=== PATIENT | male | born 1955 | race Caucasian/White ===

== ENCOUNTER 2016-10-18 13:55 | Inpatient (IN) ==
[2016-10-18] MEDS ORDERED: ONDANSETRON 4 MG/2 ML VIAL IV PRN (13:59)
[2016-10-18] MEDS ORDERED: GLUCAGON 1 MG VIAL IM PRN (13:59)
[2016-10-18] MEDS ORDERED: ACETAMINOPHEN 325 MG TABLET PO PRN (13:59)
[2016-10-18] MEDS ORDERED: DEXTROSE 50% 25 GM/50 ML VIAL IV PRN (13:59)
[2016-10-18] MEDS ORDERED: SODIUM CHLORIDE 0.45% 1,000 ML IV SCH (14:00)
[2016-10-18] MEDS ORDERED: HYDROcodone/CHLORPHENIRAMINE ER 5 ML UDCUP PO PRN (14:15)
[2016-10-18] MEDS ORDERED: PSEUDOEPHEDRINE 30 MG TABLET PO PRN (14:20)
--- NOTE | 2016-10-18 14:27 | Family Practice History&Phys ---
Assessment and Plan (1) maxillary sinusitis Status: Acute Assessment and plan: Patient has failed to respond to outpatient therapy. We'll start on antibiotics steroids and other treatment (2) bronchitis with bronchospasm Status: Acute Assessment and plan: Patient has failed to respond to outpatient treatment. We will start on respiratory treatments, steroids, antibiotics and other appropriate therapy (3) coronary artery disease with stents Status: Chronic Assessment and plan: Stable on present treatment plan (4) previous myocardial infarction Status: Chronic Assessment and plan: Stable at present (5) history sarcoidosis Status: Acute Assessment and plan: Stable at present (6) type 2 diabetes mellitus Status: Chronic Assessment and plan: Stable on present medications. We will start on sliding scale and monitor (7) hypertension Status: Chronic Assessment and plan: Stable on present medications (8) hyperlipidemia Status: Chronic Assessment and plan: Stable on present medications and diet History of Present Illness Chief complaint: sinusitis, bronchitis History of present illness: Mr. Chow is a 61 year old male Patient is a 61 year-old white male with has been followed in the clinic with a 7-10 day history of productive cough with greenish sputum, nasal discharge, headache,facial pain ,severe weakness,chills,and shortness of breath. He was seen on 10/15/2016 and noted to have significant bronchospasm and lung bases bilaterally. X-rays of the chest revealed a right perihilar infiltrate. Once the sinuses revealed a 60% air-fluid level on the left side guarding on the right. Patient was started on oral antibiotics decongestants steroids and respiratory treatments. Patient seen today stating that he is actually worse. Unable to lay down or sleep because of shortness of breath. Has significant pressure over his maxallary region and upper teeth bilaterally. Patient states she is extremely weak. He has decreased breath sounds with wheezing all lung vizcaino which appears to be worse from previous visit. In view of the of weakness with poor response to treatment we'll admit for further evaluation therapy. Home Medications Medication Instructions Recorded Confirmed Type Allopurinol [Allopurinol] 300 mg PO DAILY 09/21/15 09/21/15 History Aspirin Chew Tab 81 mg PO DAILY 09/21/15 09/21/15 History Bimatoprost 0.01% Oph Soln 1 drop BOTH EYES BEDTIME 09/21/15 09/21/15 History [Lumigan] Carvedilol [Carvedilol] 3.125 mg PO BID 09/21/15 09/21/15 History Diphenoxylate/Atrop 2.5-0.025 1 tablet PO Q6H PRN #12 tablet 09/21/15 Rx [Lomotil Tab] Glyburide/Metformin HCl 1 tablet PO BID 09/21/15 09/21/15 History [Glyburide-Metformin 5-500 mg] Losartan [Cozaar] 25 mg PO DAILY 09/21/15 09/21/15 History Omeprazole Magnesium [Prilosec Otc] 20 mg PO DAILY 09/21/15 09/21/15 History Ondansetron Tab [Zofran Tab] 4 mg PO Q4H PRN #20 tablet 09/21/15 Rx Pitavastatin Calcium [Livalo] 2 mg PO DAILY 09/21/15 09/21/15 History Allergies Allergy/AdvReac Type Severity Reaction Status Date / Time No Known Allergies Allergy Unverified 09/21/15 16:32 Medical,Surgical,& Family Hx - Medical History Cardio: History of: CAD (Previous stent placement), Hypertension, [place] Endocrine: History of: Diabetes Mellitus (NIDDM), Dyslipidemia Renal: History of: Renal Problems (history of renal calculi) Gastrointestinal: History of: GERD - Surgical History Cardiac Surgeries: Sugical HX of: Cardiac Catheterization (history of coronary artery stents) HEENT Surgeries: Surgical HX of: Tonsilectomy & Adenoidectomy Orthopedic Surgeries: Surgical HX of;: Orthopedic Surgery (arthroscopic knee surgery on right), Total Knee Replacement - Family History Family History: Reports;: Family Cancer, Family Diabetes, Family Hypertension - Social History Smoking Status: Never smoker Frequency of Alcohol Use: None Type of Drug Use: None Marital Status: Lives With:: Spouse Functional capacity: independent ambulation Exam - Constitutional General appearance: mild distress - Head Head exam: Present: normal inspection - ENT ENT exam: Present: other (nasal mucosa is inflamed with some exudate on the left side) - Neck Neck exam: Present: normal inspection - Respiratory Respiratory exam: Present: wheezes (wheezing in bases bilaterally) - Cardiovascular Cardiovascular exam: Present: regular rate and rhythm - GI/Abdominal GI/Abdominal exam: Present: normal bowel sounds, soft - Extremities Exam Extremities exam: Present: normal inspection - Back Exam Back exam: Present: normal inspection - Neurological Exam Neurological exam: Present: alert - Psychiatric Psychiatric exam: Present: normal affect - Skin Skin exam: Present: normal color
[2016-10-18 14:57] LABS: Basophils % 0.2 % (0.0-0.8); Hematocrit 46.9 VOL% (42.0-52.0); Immature Granulocytes % 0.7 %; Immature Granulocytes Absolute 0.09 #; Lymphocytes # 1.6 10*3/uL (1.4-4.0); Mean Corpuscular Hemoglobin 29 PG (27-34); Mean Corpuscular Volume 91.4 FL (87-102); Mean Platelet Volume 9.4 FL (9.6-12.0); Monocytes # 0.3 10*3/uL (0.11-0.8); Monocytes % 2.3 % (1.7-12.7); Neutrophils # 10.5 10*3/uL (1.4-7.4); Neutrophils % 83.8 % (38.7-73.9); Platelet Count 310 10*3/uL (130-400); Red Blood Count 5.13 10*6/uL (3.8-5.5); Red Cell Distribution Width 13.6 % (9.3-17.3); White Blood Count 12.5 10*3/uL (4.5-13.71)
[2016-10-18] MEDS: ALBUTEROL/IPRATROPIUM 3 ML NEB RESP TX SCH ×2 (15:11→20:10)
--- NOTE | 2016-10-18 15:13 | XRay Report ---
Exam: XR chest 2V Date: 10/18/2016 2:04 PM Indication: Shortness of breath Comparison: 10/19/2012 Technical:PA lateral Findings: Degenerative change present along the right shoulder and thoracic spine. The heart is at upper limits of normal. No obvious consolidating infiltrate or effusion. The mediastinum structures reveal no acute findings. Impression: 1. No acute cardiopulmonary pathology 2. 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 Grant Vides
[2016-10-18 15:17] LABS: Alanine Aminotransferase 44 U/L (16-61); Albumin 3.7 G/DL (3.4-5.0); Alkaline Phosphatase 90 U/L (45-117); Aspartate Amino Transferase 19 U/L (0-37); Bilirubin,Total < 0.39 MG/DL (0.2-1.0); Blood Urea Nitrogen 28 MG/DL (7-18); Calcium 9.2 MG/DL (8.5-10.1); Glucose 296 MG/DL (74-106); Magnesium 2.3 MG/DL (1.8-2.4); Osmolality,Calculated 295.4 MOS/KG (273-304); Potassium 4.3 MMOL/L (3.5-5.1); Sodium 140 MMOL/L (136-145); Total Protein 7.8 G/DL (6.4-8.3)
--- NOTE | 2016-10-18 15:20 | XRay Report ---
Exam: XR sinus Date: 10/18/2016 2:11 PM Indication: Sinusitis Comparison: None Technical: AP lateral Jason exam Findings: The frontal sinuses ethmoid air cells and the mastoid air cells and sphenoid sinus are intact. Air-fluid level suggesting acute left maxillary sinusitis. Minimal inflammation in the right maxillary antrum. Nasal septum is slightly deviated to right. Impression: 1. Acute left maxillary sinusitis with minimal inflammation in the right maxillary sinus PROCEDURE INTERPRETED AT [facility] DEPARTMENT OF RADIOLOGY Final Report Signed by: Dr. Grant Vides
[2016-10-18] MEDS: FLUTICASONE 50 MCG NASAL SPRAY 16 GM BOTTLE BOTH NARES SCH (15:46)
[2016-10-18] MEDS: methylPREDNISolone SOD SUC 40 MG/1 ML VIAL IV SCH ×2 (15:47→23:05)
[2016-10-18] MEDS ORDERED: SODIUM CHLORIDE 0.9% 100 ML IV ONE (15:55)
[2016-10-18] MEDS: cefTRIAXone 1,000 MG VIAL IM SCH (15:57)
[2016-10-18] MEDS: AZITHROMYCIN INJ 250 MG in SODIUM CHLORIDE 0.9% 250 ML IV SCH (16:00)
[2016-10-18] MEDS: POTASSIUM CHLORIDE INJ 10 MEQ in SODIUM CHLORIDE 0.45% 1,000 ML IV SCH (16:39)
[2016-10-18] MEDS: glyBURIDE/METFORMIN 5-500 MG TABLET PO SCH (21:01)
[2016-10-18] MEDS: DOCUSATE SODIUM 100 MG CAPSULE PO SCH (21:01)
[2016-10-18] MEDS: CARVEDILOL 3.125 MG TABLET PO SCH (21:02)
[2016-10-18] MEDS: BIMATOPROST 0.01% OPH SOLN 2.5 ML BOTTLE BOTH EYES SCH (21:02)
[2016-10-18 21:37] LABS: Apearance,Urine CLEAR (Clear); Bilirubin,Urine Negative (Negative); Blood, Urine Negative (Negative); Glucose,Urine (UA) >=500 mg/dL (Negative); Ketones,Urine 5 mg/dL (Negative); Nitrite,Urine Negative (Negative); Protein,Urine Negative; RBC,Urine <1 /HPF (0-4); Urine Color Straw (Yellow); Urine Specific Gravity 1.025 (1.001-1.035); Urine Urobilinogen < 2.0 EU/DL (0.2-1.0); WBC,Urine <1 /HPF (0-6)
[2016-10-19] MEDS: ALBUTEROL/IPRATROPIUM 3 ML NEB RESP TX SCH ×7 (03:54→23:40)
[2016-10-19] MEDS: POTASSIUM CHLORIDE INJ 10 MEQ in SODIUM CHLORIDE 0.45% 1,000 ML IV SCH ×3 (04:03→23:50)
[2016-10-19] MEDS: methylPREDNISolone SOD SUC 40 MG/1 ML VIAL IV SCH ×2 (06:20→17:03)
[2016-10-19 06:57] LABS: Risk Ratio 3.98; VLDL CHOLESTEROL 24.2 MG/DL
--- NOTE | 2016-10-19 08:13 | Family Practice Progress Note ---
Family Practice - PN: Subj Interval history: Patient was admitted with severe weakness, sinus pressure over the maxillary region, cough with bronchospasm. Symptoms have occurred over the last 7-10 days and have failed to respond to various treatment regimens.. His sinus x- rays in the office last Saturday revealed 70% air-fluid level in the left maxillary sinus. Patient is normally very healthy and he was extremely weak on admission. States she feels some better today but is still having pressure was a maxillary region. Sinus series on admission revealed a persistent air-fluid level on the left side. He is actually breathing better this a.m. and has only minimal wheezing in bases. We will continue present aggressive treatment and will consult ENT. May require sinus irrigation.. Will otherwise continue present treatment plan Exam (Progress Note) - Constitutional Vitals: Period Temp Pulse Resp BP Sys/Muñiz Pulse Ox Last 24 Hr 97.2 F-98 F 64-88 15-20 129-166/76-97 92-100 Results - Labs CBC & BMP: 10/18/16 14:33 10/18/16 14:33 Assessment and Plan (1) maxillary sinusitis Status: Acute Assessment and plan: Patient has failed to respond to outpatient therapy. We'll start on antibiotics steroids and other treatment Current Visit: Yes (2) bronchitis with bronchospasm Status: Acute Assessment and plan: Patient has failed to respond to outpatient treatment. We will start on respiratory treatments, steroids, antibiotics and other appropriate therapy Current Visit: Yes (3) coronary artery disease with stents Status: Chronic Assessment and plan: Stable on present treatment plan Current Visit: Yes (4) previous myocardial infarction Status: Chronic Assessment and plan: Stable at present Current Visit: Yes (5) history sarcoidosis Status: Acute Assessment and plan: Stable at present Current Visit: Yes (6) type 2 diabetes mellitus Status: Chronic Assessment and plan: Stable on present medications. We will start on sliding scale and monitor Current Visit: Yes (7) hypertension Status: Chronic Assessment and plan: Stable on present medications Current Visit: Yes (8) hyperlipidemia Status: Chronic Assessment and plan: Stable on present medications and diet Current Visit: Yes
[2016-10-19] MEDS ORDERED: PITAVASTATIN 2 MG TABLET PO SCH (09:00)
[2016-10-19] MEDS: PANTOPRAZOLE 40 MG TABLET PO SCH (09:10)
[2016-10-19] MEDS: glyBURIDE/METFORMIN 5-500 MG TABLET PO SCH ×2 (09:10→20:51)
[2016-10-19] MEDS: ROSUVASTATIN 10 MG TABLET PO SCH (09:10)
[2016-10-19] MEDS: DOCUSATE SODIUM 100 MG CAPSULE PO SCH ×2 (09:11→20:52)
[2016-10-19] MEDS: CARVEDILOL 3.125 MG TABLET PO SCH ×2 (09:11→20:51)
[2016-10-19] MEDS: LOSARTAN 25 MG TABLET PO SCH (09:11)
[2016-10-19] MEDS: ALLOPURINOL 300 MG TABLET PO SCH (09:11)
[2016-10-19] MEDS: FLUTICASONE 50 MCG NASAL SPRAY 16 GM BOTTLE BOTH NARES SCH (09:24)
--- NOTE | 2016-10-19 11:00 | Consultation ---
Assessment and Plan - Time spent with patient Time spent with patient: Less than 30 minutes (1) maxillary sinusitis Status: Acute Assessment and plan: Because of the upper and lower respiratory component of his acute left maxillary sinusitis I would recommend Levaquin 750 daily for the next 10 days as it provides good coverage and good penetration to the sinus tissues. Additionally I discussed nasal irrigation with the patient and in the short- term the ability to use topical mupirocin warmed to a liquid form and placed with saline into the cementing machine operator for a saline rinse with antibiotics. I would recommend Flonase nasal spray and depending on how brittle his diabetes is a Medrol dose pack making offer some symptomatic relief as well. I would recommend she follow-up on Saturday in my office where I could do a in office maxillary irrigation or potentially sign him out for a minimal OR procedure later in the week to remove the offending left sinusitis. He asked if I felt he could be discharged to home and I defer this to his primary care physician but I feel he would be able to continue his treatment at home from an otolaryngologic perspective. Thank you very much for this consult I will plan on seeing this patient in the office on Saturday to continuing further his care please notify me if there are any questions or concerns. Current Visit: Yes (2) Nasal congestion Status: Acute Current Visit: Yes (3) Nasal turbinate hypertrophy Status: Acute Current Visit: Yes (4) history sarcoidosis Status: Acute Current Visit: Yes (5) type 2 diabetes mellitus Status: Chronic Current Visit: Yes History of Present Illness - Data of Consult Patient: new to practice Consult date: 10/19/16 Requesting Physician: Johnson Alcala - Consult Narrative Reason for consult: Acute left maxillary sinusitis with secondary upper and lower respiratory d History of present illness: Mr. Chow is a 61 year old male with a two-week history of upper and lower respiratory symptoms consistent with sinusitis and bronchitis. He does have a history of sarcoid per his medical record. He has been treated for 2 weeks with minimal improvement and was admitted for inpatient treatment. Continues to note left-sided cheek and facial pressure with pain. Additionally nasal congestion and postnasal drainage causing irritation and a reactive airway consistent with potentially a secondary bronchitis or irritation of chronic underlying disease. CC: Johnson Alcala, DO - Home Medications and Allergies Home Medications: Home Medications Medication Instructions Recorded Confirmed Type Allopurinol [Allopurinol] 300 mg PO DAILY 09/21/15 10/18/16 History Aspirin Chew Tab 81 mg PO DAILY 09/21/15 10/18/16 History Carvedilol [Carvedilol] 3.125 mg PO BID 09/21/15 10/18/16 History Glyburide/Metformin HCl 1 tablet PO BID 09/21/15 10/18/16 History [Glyburide-Metformin 5-500 mg] Losartan [Cozaar] 25 mg PO DAILY 09/21/15 10/18/16 History Omeprazole Magnesium [Prilosec Otc] 20 mg PO DAILY 09/21/15 10/18/16 History Bimatoprost 0.01% Oph Soln 1 drop BOTH EYES BEDTIME 10/18/16 10/18/16 History [Lumigan] Budesonide/Formoterol 160-4.5 2 puff INH BID 10/18/16 10/18/16 History [Symbicort 160-4.5] Doxycycline Hyclate Cap 100 mg PO BID 10/18/16 10/18/16 History [Vibramycin Cap] Hydrocodone Bit/Homatrop Me-Br 1 tablet PO Q4H PRN 10/18/16 10/18/16 History [Hydrocodone/Homatropine 5-1.5 mg Tab] Rosuvastatin Calcium [Crestor] 10 mg PO DAILY 10/18/16 10/18/16 History Allergies/Adverse Reactions: Allergies Allergy/AdvReac Type Severity Reaction Status Date / Time No Known Allergies Allergy Unverified 09/21/15 16:32 12 point system: reviewed and no additional remarkable complaints except as stated Medical,Surgical,& Family Hx - Medical History Cardio: History of: CAD (Previous stent placement), Hypertension, [place] Endocrine: History of: Diabetes Mellitus (NIDDM), Dyslipidemia Renal: History of: Renal Problems (history of renal calculi) Gastrointestinal: History of: GERD - Surgical History Cardiac Surgeries: Sugical HX of: Cardiac Catheterization (history of coronary artery stents) HEENT Surgeries: Surgical HX of: Tonsilectomy & Adenoidectomy Orthopedic Surgeries: Surgical HX of;: Orthopedic Surgery (arthroscopic knee surgery on right), Total Knee Replacement - Family History Family History: Reports;: Family Cancer, Family Diabetes, Family Hypertension - Social History Smoking Status: Never smoker Frequency of Alcohol Use: None Type of Drug Use: None Exam - Constitutional Vitals: Period Temp Pulse Resp BP Sys/Muñiz Pulse Ox Last 24 Hr 97.2 F-98 F 64-88 15-20 129-166/76-97 92-100 General appearance: normal weight, no acute distress - Head Head exam: Present: normal inspection, normocephalic - Eye Eye exam: Present: EOMI Pupils: Present: MARY - ENT ENT exam: Present: normal exam, normal external ear exam, normal oropharynx, other (Anterior rhinoscopy reveals left greater than right mucosal edema with purulence from the left ostiomeatal complex consistent with a acute left maxillary sinusitis consistent with x-ray) - Neck Neck exam: Present: normal inspection - Respiratory Respiratory exam: Present: wheezes - Cardiovascular Cardiovascular exam: Present: regular rate and rhythm - GI/Abdominal GI/Abdominal exam: Present: soft - Neurological Exam Neurological exam: Present: alert, oriented X3, CN II-XII intact - Psychiatric Psychiatric exam: Present: normal affect, normal mood - Skin Skin exam: Present: normal color, warm Results - Labs CBC & BMP: 10/18/16 14:33 10/18/16 14:33 Lab Results: I have reviewed the past 24 hour labs - Diagnostic Findings Procedure: X-ray: pending, image reviewed by me, report reviewed by me (I agree with report consistent with acute left maxillary sinusitis)
[2016-10-19] MEDS: AZITHROMYCIN INJ 250 MG in SODIUM CHLORIDE 0.9% 250 ML IV SCH (15:04)
[2016-10-19] MEDS: cefTRIAXone 1,000 MG VIAL IM SCH (15:04)
[2016-10-19] MEDS: cefTRIAXone 1,000 MG in SODIUM CHLORIDE 0.9% 100 ML IV SCH (15:05)
[2016-10-19] MEDS: INSULIN LISPRO 100 UNIT/ML SUBCUT SCH ×3 (16:06→20:58)
[2016-10-19] MEDS: MUPIROCIN 2% OINT 22 GM TUBE TOP SCH ×2 (16:10→20:52)
[2016-10-19] MEDS: ZALEPLON 5 MG CAPSULE PO SCH (20:51)
[2016-10-19] MEDS: BIMATOPROST 0.01% OPH SOLN 2.5 ML BOTTLE BOTH EYES SCH (20:51)
[2016-10-19] MEDS ORDERED: BIMATOPROST 0.01% OPH SOLN 2.5 ML BOTTLE BOTH EYES SCH (21:00)
[2016-10-20] MEDS: methylPREDNISolone SOD SUC 40 MG/1 ML VIAL IV SCH ×2 (00:43→08:53)
[2016-10-20] MEDS: ALBUTEROL/IPRATROPIUM 3 ML NEB RESP TX SCH ×6 (03:25→23:48)
[2016-10-20 05:51] LABS: Hematocrit 39.7 VOL% (42.0-52.0); Immature Granulocytes % 1.1 %; Immature Granulocytes Absolute 0.18 #; Lymphocytes # 1.5 10*3/uL (1.4-4.0); Lymphocytes % 9.1 % (21.2-54.2); Mean Corpuscular HGB Conc 32.7 GM/DL (32-36); Mean Corpuscular Hemoglobin 29 PG (27-34); Mean Platelet Volume 9.5 FL (9.6-12.0); Monocytes # 0.6 10*3/uL (0.11-0.8); Monocytes % 3.5 % (1.7-12.7); Neutrophils # 14.4 10*3/uL (1.4-7.4); Neutrophils % 86.3 % (38.7-73.9); Platelet Count 255 10*3/uL (130-400); Red Blood Count 4.51 10*6/uL (3.8-5.5); Red Cell Distribution Width 13.4 % (9.3-17.3); White Blood Count 16.6 10*3/uL (4.5-13.71)
[2016-10-20 06:26] LABS: Calcium 8.6 MG/DL (8.5-10.1)
[2016-10-20 06:27] LABS: Osmolality,Calculated 290.5 MOS/KG (273-304); Potassium 4.9 MMOL/L (3.5-5.1)
[2016-10-20] MEDS: POTASSIUM CHLORIDE INJ 10 MEQ in SODIUM CHLORIDE 0.45% 1,000 ML IV SCH (08:48)
[2016-10-20] MEDS: AZITHROMYCIN INJ 250 MG in SODIUM CHLORIDE 0.9% 250 ML IV SCH (08:52)
[2016-10-20] MEDS: CARVEDILOL 3.125 MG TABLET PO SCH ×2 (08:53→21:14)
[2016-10-20] MEDS: LOSARTAN 25 MG TABLET PO SCH (08:53)
[2016-10-20] MEDS: ROSUVASTATIN 10 MG TABLET PO SCH (08:53)
[2016-10-20] MEDS: PANTOPRAZOLE 40 MG TABLET PO SCH (08:53)
[2016-10-20] MEDS: DOCUSATE SODIUM 100 MG CAPSULE PO SCH ×2 (08:53→21:14)
[2016-10-20] MEDS: ALLOPURINOL 300 MG TABLET PO SCH (08:54)
[2016-10-20] MEDS: glyBURIDE/METFORMIN 5-500 MG TABLET PO SCH ×2 (08:54→21:14)
[2016-10-20] MEDS: FLUTICASONE 50 MCG NASAL SPRAY 16 GM BOTTLE BOTH NARES SCH (08:55)
[2016-10-20] MEDS: INSULIN LISPRO 100 UNIT/ML SUBCUT SCH ×4 (09:05→21:15)
--- NOTE | 2016-10-20 10:39 | Internal Med Progress Note ---
Assessment and Plan (1) Acute sinusitis Status: Acute Assessment and plan: 61-year-old male admitted to acute care * Acute sinusitis. Patient was seen by ENT and recommended treatment. Will change antibiotics to Levaquin * Hypertension. Blood pressure is stable * Diabetes. Blood sugars are high secondary to steroids. Will DC IV steroids and change to p.o. * Hyperlipidemia. Continue current treatment * DC IV fluids Current Visit: Yes (2) coronary artery disease with stents Status: Chronic Current Visit: Yes (3) hypertension Status: Chronic Current Visit: Yes (4) type 2 diabetes mellitus Status: Chronic Current Visit: Yes Internal Medicine - PN: Subj Interval history: Patient is feeling much better. He wants to go home. No chest pain or shortness of breath Exam (Progress Note) - Constitutional Vitals: Period Temp Pulse Resp BP Sys/Muñiz Pulse Ox Last 24 Hr 97.5 F-97.7 F 54-100 16-22 111-145/60-90 92-98 Exam: Examination: GENERAL: NAD. HEENT: PERRLA. EOMI. NECK: Neck is supple. CVS: Regular rate and rhythm. RESPIRATORY: Lungs are clear. ABDOMEN: Soft and nontender. EXT: No edema. GAMB CUTTER: Nonfocal Results - Labs CBC & BMP: 10/20/16 05:28 10/20/16 05:28 Lab Results: I have reviewed the past 24 hour labs
[2016-10-20] MEDS: cefTRIAXone 1,000 MG in SODIUM CHLORIDE 0.9% 100 ML IV SCH (11:09)
[2016-10-20] MEDS: LEVOFLOXACIN INJ 750 MG in PREMIX 1 EACH IV SCH (11:11)
[2016-10-20] MEDS: MUPIROCIN 2% OINT 22 GM TUBE TOP SCH ×3 (11:11→21:18)
[2016-10-20] MEDS: predniSONE 10 MG TABLET PO SCH (21:14)
[2016-10-20] MEDS: ZALEPLON 5 MG CAPSULE PO SCH (21:14)
[2016-10-20] MEDS: BIMATOPROST 0.01% OPH SOLN 2.5 ML BOTTLE BOTH EYES SCH (21:21)
[2016-10-21] MEDS: ALBUTEROL/IPRATROPIUM 3 ML NEB RESP TX SCH ×2 (03:11→08:13)
[2016-10-21] MEDS: CARVEDILOL 3.125 MG TABLET PO SCH (09:55)
[2016-10-21] MEDS: ALLOPURINOL 300 MG TABLET PO SCH (09:55)
[2016-10-21] MEDS: glyBURIDE/METFORMIN 5-500 MG TABLET PO SCH (09:55)
[2016-10-21] MEDS: predniSONE 10 MG TABLET PO SCH (09:55)
[2016-10-21] MEDS: DOCUSATE SODIUM 100 MG CAPSULE PO SCH (09:55)
[2016-10-21] MEDS: ROSUVASTATIN 10 MG TABLET PO SCH (09:55)
[2016-10-21] MEDS: LOSARTAN 25 MG TABLET PO SCH (09:55)
[2016-10-21] MEDS: INSULIN LISPRO 100 UNIT/ML SUBCUT SCH ×2 (09:56→11:41)
[2016-10-21] MEDS: MUPIROCIN 2% OINT 22 GM TUBE TOP SCH (09:56)
[2016-10-21] MEDS: AZITHROMYCIN INJ 250 MG in SODIUM CHLORIDE 0.9% 250 ML IV SCH (09:57)
[2016-10-21] MEDS: PANTOPRAZOLE 40 MG TABLET PO SCH (09:58)
[2016-10-21] MEDS: FLUTICASONE 50 MCG NASAL SPRAY 16 GM BOTTLE BOTH NARES SCH (09:58)
--- NOTE | 2016-10-21 10:38 | Discharge Summary ---
Hospital Course - Hospital Course Hospital Course: Patient is a 61-year-old male with history of multiple medical problems including diabetes, hypertension, hyperlipidemia who was admitted with severe maxillary sinusitis not responding to outpatient treatment. He was started on IV antibiotics and was seen in consultation by ENT. ENT recommended patient to be started on Levaquin and nasal steroids. He is also on prednisone p.o. He was switched from IV steroids yesterday. He is feeling much better and wants to go home. He will be followed by ENT in the morning. He will see Dr. Alcala in next 2 weeks. Diagnosis - Discharge Diagnosis (1) Acute sinusitis Status: Acute (2) coronary artery disease with stents Status: Chronic (3) hypertension Status: Chronic (4) type 2 diabetes mellitus Status: Chronic Discharge Plan - Discharge Data Disposition: Disch To Home/Self Care Condition at Discharge: Stable Discharge Diet: advance to your usual diet Activity: resume usual activities as tolerated - Discharge Medications New Levofloxacin Tab [Levaquin Tab] 750 mg PO DAILY #10 tablet Mupirocin 2% Oint [Bactroban 2% Oint] 1 applic TOP TID #30 ointment Fluticasone 50 Mcg Nasal Bicknell [Flonase Nasal Bicknell] 2 spray BOTH NARES DAILY #30 nasal spray predniSONE TAB [PredniSONE] 10 mg PO BID #10 tablet Continue Aspirin Chew Tab 81 mg PO DAILY Omeprazole Magnesium [Prilosec Otc] 20 mg PO DAILY Losartan [Cozaar] 25 mg PO DAILY Glyburide/Metformin HCl [Glyburide-Metformin 5-500 mg] 1 tablet PO BID Carvedilol 3.125 mg PO BID Allopurinol 300 mg PO DAILY Hydrocodone Bit/Homatrop Me-Br [Hydrocodone/Homatropine 5-1.5 mg Tab] 1 tablet PO Q4H PRN PRN Reason: Pain Doxycycline Hyclate Cap [Vibramycin Cap] 100 mg PO BID Budesonide/Formoterol 160-4.5 [Symbicort 160-4.5] 2 puff INH BID Bimatoprost 0.01% Oph Soln [Lumigan] 1 drop BOTH EYES BEDTIME Rosuvastatin Calcium [Crestor] 10 mg PO DAILY - Follow Up or Referral - Forms/Instructions Additional Discharge Instructions: Make appointment with Dr. edgar for tomorrow morning. Appointment with Dr. Alcala in 2 weeks. Call in medications started during hospital stay Exam - Constitutional Vitals: Period Temp Pulse Resp BP Sys/Muñiz Pulse Ox Last 24 Hr 97.4 F-98.0 F 59-99 16-20 129-142/64-90 93-99 Exam: Examination: GENERAL: NAD. HEENT: PERRLA. EOMI. NECK: Neck is supple. CVS: Regular rate and rhythm. RESPIRATORY: Lungs are clear. ABDOMEN: Soft and nontender. EXT: No edema. BED OPERATOR: Nonfocal Discharge Results Procedures and tests throughout hospitalization: Pending Orders 10/18/16 14:33 Blood Culture Stat Labs on day of discharge: Labs from last 24 hours 10/21/16 10/20/16 10/20/16 07:16 19:56 16:01 POC Glucose 150 H 379 H 285 H 10/20/16 10:44 POC Glucose 308 H Preliminary micro results at discharge 10/18/16 14:33 Blood Culture - Preliminary Blood No growth at 1 day 10/18/16 14:33 Blood Culture - Preliminary Blood No growth at 1 day DS: Provider Date of admission: 10/18/16 14:14 Primary care physician: Johnson Alcala DO Attending physician on admission: Johnson Alcala DO Consults: 10/19/16 08:14 Consult to Physician [CONS] Routine Comment: persistent air-fluid level left maxillary sinus Consulting Provider: Kingsley Edgar Person Notified: rene Date Notified: 10/19/16 Time Notified: 09:09 Discharging clinician: Julio Vargas MD
[2016-10-21] MEDS: LEVOFLOXACIN INJ 750 MG in PREMIX 1 EACH IV SCH (11:40)
[2016-10-21 11:53] VITALS: BP 132/90
== END 2016-10-21 12:40 | disposition home or self-care (01) | DRG 153 ==
LOC: N.2E 14:14
PROVIDERS: ADMIT Family Medicine; ATTEND Family Medicine